=== PATIENT | female | born 1990 | race Caucasian/White ===

== ENCOUNTER 2016-12-12 13:42 | Inpatient (IN) | payer OTHER ==
[~2016-12-12] VITALS: Ht 170.2 cm; Wt 92.1 kg
[2016-12-12] MEDS ORDERED: Lactated Ringer's 1,000 ML IV PRN (22:52)
[2016-12-12] MEDS ORDERED: Oxytocin 30 Units/500 mL LR 30 UNITS in IV Premix 1 EACH IV PRN (22:55)
[2016-12-12] MEDS ORDERED: Hemorrhage Kit, Post Partum XX ONE (22:55)
[2016-12-12] MEDS ORDERED: Ondansetron 2 mg/mL 2 mL Inj IVPUSH PRN (22:55)
[2016-12-12] MEDS ORDERED: Carboprost 250 mCg/mL Inj IM PRN (22:55)
[2016-12-12] MEDS ORDERED: Methylergonovine 0.2 mg/mL Inj IM PRN (22:55)
[2016-12-12] MEDS ORDERED: Oxytocin 10 Unit/mL Inj IM PRN (22:55)
[2016-12-12] MEDS ORDERED: Sodium Chloride LOK Flush 10 mL Syringe IVFLUSH PRN (22:55)
[2016-12-12] MEDS ORDERED: fentaNYL-PF 50 mCg/mL 2 mL Inj IVPUSH PRN (22:55)
[2016-12-12 23:14] LABS: Mean Corpuscular Hemoglobin 28.4 pg (27.0-35.0); Mean Corpuscular Volume 83.3 fL (81-100)
[2016-12-13] MEDS ORDERED: Lactated Ringer's 500 ML IV ONE (00:21)
[2016-12-13] MEDS ORDERED: Ondansetron 2 mg/mL 2 mL Inj IVPUSH PRN (00:25)
[2016-12-13] MEDS ORDERED: EPHEDrine Sulfate 50 mg/mL Inj IVPUSH PRN (00:25)
[2016-12-13] MEDS ORDERED: fentaNYL 2 mCg/mL-Bupiv 0.125% 100 ML EPIDURAL SCH (00:25)
[2016-12-13] MEDS ORDERED: Atropine 1 mg/10 mL (Code) Syringe IVPUSH PRN (00:25)
[2016-12-13] MEDS ORDERED: fentaNYL 2 mCg/mL-Bupivicaine 0.125% 100 mL Premix EPIDURAL ONE (00:28)
[2016-12-13] MEDS: Sodium Chloride LOK Flush 10 mL Syringe IVFLUSH SCH ×3 (00:30→17:00)
[2016-12-13] MEDS: Lactated Ringer's 1,000 ML IV SCH ×3 (00:57→10:19)
--- NOTE | 2016-12-13 01:03 | PCM.HPANE ---
Patient Data Surgeon Admitting Provider:Marti Kuo MD Attending Provider:Colin Zaidi MD Primary Care Physician:Gabrielle Skelton MD Other Provider:Segundo Pittman Anesthesia Reason for Visit Labor (Tolac) LABOR (TOLAC) Ht/WT & BMI Body Mass Index Allergies Coded Allergies: No Known Allergies (Unverified , 12/12/16) History History of ENT Problems?: No Hx of Heart Problems?: No Hx of Respiratory Problem?: No Other History/Comments RA and fibromylalgia; RA does not affect her spine Hx of GI Problems?: No Hx of Problems?: No Female Hx: Positive for:: Currently Other History/Comment Hx at OSH due to abruption. Wishes for TOLAC this . Desires epidural at this time Musculoskeletal History: Positive for:: Fibromyalgia Hx Surgeries?: Yes Hx Alcohol Use: NoHx Substance Use: No Stop/Bang Risk Assessment Category Category 1A: Patient has history of documented sleep apnea, and HAS NOT received any narcotic, sedative or anesthesia administration during this stay. Category 1B: Patient has history of documented sleep apnea, and HAS received any narcotic , sedative or anesthesia administration during this stay Category 2: Patient has SUSPECTED Obstructive Sleep Apnea, and HAS received any narcotic , sedative or anesthesia administration during this stay. Category 3: Patient has SUSPECTED Obstructive Sleep Apnea and HAS NOT received narcotic, sedative or anesthesia administration during this stay. Category 4: Outpatient in Procedural Areas with known sleep apnea or who screen positive for High Risk via the STOP/BANG questionnaire. Exam Exam General Appearance: Alert, Oriented X3 HEENT/AIRWAY: MP 2, Neck Movement (FROM) Lungs: Clear to Auscultation, Clear to Percussion Heart: Exam Unremarkable, Regular Rate/Rhythm Meds/Labs/Diagnostics Labs Test 12/12/16 20:08 White Blood Count 11.3th/mm3 (3.8-10.1) Red Blood Count 4.72mil/mm3 (3.90-5.20) Hemoglobin 13.4g/dL (12.0-15.6) Hematocrit 39.3% (35.0-46.0) Mean Corpuscular Volume 83.3fL (81-100) Mean Corpuscular Hemoglobin 28.4pg (27.0-35.0) Mean Corpuscular Hemoglobin Concent 34.1% (32.0-37.0) Red Cell Distribution Width 13.0% (12.3-15.4) Platelet Count 218bil/L (150-400) Plan Impression Patient chart reviewed, patient interviewed and anesthestic plan with risks, benefits, and alternatives discussed, and informed consent obtained. ASA Physical Status: ASA2 Mod Systemic Disease Anesthetic Plan: Epidural Bene/Risks/Altern/Consents: Yes HP Complete Prior to Induction: Yes Pablo Kim MD Dec 13, 2016 00:23
--- NOTE | 2016-12-13 02:50 | PCM.HPOB ---
Subjective Date of Service: Dec 12, 2016 Referring Provider: Admitting Physician: Marti Kuo MD Primary Care Physician: Gabrielle Skelton MD Attending Physician: Colin Zaidi MD Chief Complaint Contractions History of Present History of Present Illness 26 Y /O at 38 w 2d DMITRI 12/24/16 by First trimester US 1. Hx of previous Cs for placenta abruption at term desires , calculated success rate 77% 2. Depression 3. Anxiety 4. Elevated BP 150/82 at first OB visit. Presented to [facility] with complaint of contractions , after prolonged observation in triage room SROM at ~ 2245 12/12/16 , light meconium stain with cervical change from 2cm to 3 cm. Past Medical History Obstetrical History: Oct 2008 PCD for placenta abruption , M, 7 lb 5 oz. Patient staes that she was told that she is TOLAC cndidate after her section. Patiemnt was counseled at the office by Dr. Reyes. Gynecologic History: LMP 03/31/16 , uncertain. Regular menses. Hx of abn pap smear S/P LEEP. Medical History: Depression and anxiety Elevated BP 150/82 at first OB visit. RA Irritable bowel disease GERD Surgical History: section Cholecystectomy LEEP Hx Tobacco Use: No Hx Alcohol Use: No Hx Substance Use: No Past Family History Family History Lung cancer, Breast disease (Mother) Goat, Bladder cancer, HTN, despression, Colon disease(Father) RA (MGM) Review of Systems ROS 10 points ROS is negative. Medications Home medications Zoloft 200 mg daily gabapentin 600 mg , 1200 mg Ranitidine 150 mg BID PNV Allergy Coded Allergies: No Known Allergies (Unverified , 12/12/16) Exam Vital Signs 112/57 75 100 % on RA T 36.8 Exam 135 moderate variability , positive accelerations and no decelerations , variable decelerations earlier in the triage room , BPP 8/8 Constitutional: Well-developed HEENT: Atraumatic, PERRLA Lungs: Clear to Auscultation Heart: Regular Rate/Rhythm, Normal S1, Normal S2 Abdomen: Gravid, Soft, No tenderness, Other (EFW 8 lb ) Extremities: Pulses Palpable x4 Neurological/Psychiatric: Alert, Oriented X3 Additional Information 6 cm/100 %/0 Labs/Diagnostics Labs Laboratory Tests 72 Hours Test 12/12/16 20:08 White Blood Count 11.3th/mm3 (3.8-10.1) Red Blood Count 4.72mil/mm3 (3.90-5.20) Hemoglobin 13.4g/dL (12.0-15.6) Hematocrit 39.3% (35.0-46.0) Mean Corpuscular Volume 83.3fL (81-100) Mean Corpuscular Hemoglobin 28.4pg (27.0-35.0) Mean Corpuscular Hemoglobin Concent 34.1% (32.0-37.0) Red Cell Distribution Width 13.0% (12.3-15.4) Platelet Count 218bil/L (150-400) Lab/Diagnostic Information A positive, Antibody negative Rubella immune RPR NR HBsAg NR HIV NR Elevated 1 hr GTT, 3 hrs WNL. GC/CT negative 07/06/16 Hgb 10.6 (05/18/16) TSH 1.4 Hep C negative OB Intrapartum Assessment/Plan Assessment 26 Y /O at 38 w 2d DMITRI 12/24/16 by First trimester US .SROM light meconium stained fluid. ~ 22:45 (12/12/16) TOLAC : Counseled re R/B/A including and limited to risk of uterine rupture, , maternal , hysterectomy, increased risk of section complications if failed TOLACcompared to elective section. All questions were answered. Patient desires TOLAC Informed const was signed. GBS negative Pain Management: admit with orders and labs. Marti Kuo MD Dec 13, 2016 02:50
[2016-12-13] MEDS ORDERED: Lactated Ringer's 1,000 ML IV SCH (06:44)
[2016-12-13] MEDS ORDERED: Oxytocin 30 Units/500 mL LR 30 UNITS in IV Premix 1 EACH IV PRN ×2 (06:45→10:20)
--- NOTE | 2016-12-13 07:01 | PCM.PNOBIP ---
Subjective Date of Service Dec 13, 2016 Subjective comfortable with epidural with some urge to push and pelvic pressure with contractions Labs Laboratory Tests 12/12/16 20:08: White Blood Count 11.3, Red Blood Count 4.72, Hemoglobin 13.4, Hematocrit 39.3, Mean Corpuscular Volume 83.3, Mean Corpuscular Hemoglobin 28.4, Mean Corpuscular Hemoglobin Concent 34.1, Red Cell Distribution Width 13.0, Platelet Count 218 Exam Vital Signs Vital Signs 128/63 87 T 36.8 Contraction frequency in minutes: every 5 min FHT: 130 moderate variability , variable decelerations when pushing with contractions. Vital Signs: VS reviewed, stable Heart Tracings Heart Tones Baseline bpm Tocometry/IUPC Contraction frequency in minutes: MVUs: Exam General: Alert, Oriented X3 OB Intrapartum Assessment/Plan Assessment 26 Y /O at 38 w 3d DMITRI 12/24/16 by First trimester US .SROM light meconium stained fluid. ~ 22:45 (12/12/16) TOLAC : Second stage of labor started 5:00 am , contractions every 5 min. Start Pitocin for augmentation Marti Kuo MD Dec 13, 2016 07:01
--- NOTE | 2016-12-13 09:05 | DRSVH ---
PROCEDURE: US OB BIOPHYSICAL PROFILE AND UMBILICAL DOPPLER INDICATIONS: variables OUTSIDE/PRIOR DATING DATA: Last menstrual period (LMP): March 31, 2016. LMP-based estimated date of delivery (DMITRI): January 05, 2017. First dating scan (date and location): June 05, 2016 at [facility]. Estimated date of delivery (DMITRI) from first dating scan: December 24, 2016. TECHNIQUE: Real-time scanning was performed of the fetus for biophysical profile, with image documentation. Col or and pulse Doppler interrogation was also performed of the umbilical artery near its insertion into the placenta. COMPARISON: [facility], US, US OB FOLLOW UP GROWTH, 11/07/2016, 8:31. FINDINGS: General: A single living intrauterine gestation is present. Presentation: Vertex. Placenta: Placental position is anterior, without previa. OB-TRAP SETTER Ultrasound Procedure Report Summary Fetus Summary Heart Rate: 143 bpm Gestational Age from initial dating scan: 38 weeks, 2 days Findings(Amniotic Sac) Amniotic Fluid Index (CASTRO): 11.70 cm Pelvis and Uterus Cervix Length (Mean): Not well seen. Biophysical Profile Amniotic Fluid Volume: 2 Breathin Gross Body Movement: 2 Tone: 2 Biophysical Profile Sum Score: 8 Findings(Pelvic Vascular Structure) Umbilical Artery S/D Ratio: Normal ratios ranging between 2.0 and 2.2 IMPRESSION: Normal biophysical profile and cord Doppler with preserved diastolic flow. Dictated by: Luis Pacheco [facility] Interpreted: Jaswant Davis MD on 12/13/2016 at 8:59 Transcribed by: EV on 12/13/2016 at 9:04 Approved by: Jaswant Davis M.D. on 12/13/2016 at 17:45
[2016-12-13] MEDS ORDERED: Witch Hazel-Glycerin Pads TOPICAL PRN (10:20)
[2016-12-13] MEDS ORDERED: Hemorrhage Kit, Post Partum XX ONE (10:20)
[2016-12-13] MEDS ORDERED: Methylergonovine 0.2 mg/mL Inj IM PRN (10:20)
[2016-12-13] MEDS ORDERED: Carboprost 250 mCg/mL Inj IM PRN (10:20)
[2016-12-13] MEDS ORDERED: Oxytocin 10 Unit/mL Inj IM PRN (10:20)
[2016-12-13] MEDS ORDERED: Benzocaine (Dermoplast) 20% 60 Gm Spray TOPICAL PRN (10:20)
--- NOTE | 2016-12-13 10:27 | PCM.OBVAG ---
Vaginal Delivery Date of Service Dec 13, 2016 Pre Operative Diagnosis Pre Operative Diagnosis 1. 38 weeks 2 days gestation 2. Previous delivery who desired TOLAC Post Operative Diagnosis Post Operative Diagnosis 1. 38 weeks 2 days gestation 2. Previous delivery who desired TOLAC Procedure Procedure: Obstetical Procedure: Normal Spontaneous Vaginal Delivery Manager Drug/Hand Compositor Provider and Hand Compositor: Danisha Lindsey MD Indication for Procedure Indication for Procedure 26 y/o at 38 weeks 2 days gestation with a history of a previous delivery who desired TOLAC Induction: Active labor, Pitocin augmentation, SROM, Progressed normally through labor Findings Obstetrical Findings: (Male), Cord (3 Vessel), Weight (3051grams) , Presentation (NADEEN), 1 minute (8), 5 minutes (9), Placenta (Intact/ Normal) Analgesia/Medications Obstetrical Anesthesia: Epidural Procedure Details Procedure Details 38 week 2 days gestation with history of previous delivery who desired a trial of labor. She presented in active labor and had SROM on admission. She progressed to complete cervical dilation at 0550hrs. She required pitocin augmentation due to infrequent contractions. Male was delivered at 0903hrs without complication. There was light meconium stained amniotic fluid. Pediatricians were present at delivery, but spontaneously cried after delivery and was placed on maternal chest for skin to skin bonding. The placenta was delivered intact at 0918hrs. Uterus was firm and no significant perineal or vaginal lacerations needing repair were appreciated. Sponge and Needle counts were correct times two at the end of the procedure. Blood Loss & Administration Estimated Blood Loss: 200 Blood Admin during procedure: No Post Procedure Plan Post Procedure Plan Routine pp care Post delivery Condition: Mom stable Danisha Lindsey MD Dec 13, 2016 10:27
[2016-12-13] MEDS ORDERED: Witch Hazel-Glycerin Pads TOPICAL ONE (12:48)
[2016-12-13] MEDS ORDERED: Benzocaine (Dermoplast) 20% 60 Gm Spray TOPICAL ONE (12:48)
[2016-12-13] MEDS ORDERED: LANOlin HPA 7 Gm Ointment TOPICAL ONE (12:48)
[2016-12-13] MEDS: HYDROcodone-APAP 5-325 mg Tablet PO PRN ×2 (15:52→19:51)
[2016-12-14] MEDS: HYDROcodone-APAP 5-325 mg Tablet PO PRN (00:14)
[2016-12-14 08:18] LABS: Mean Corpuscular Hemoglobin 28.1 pg (27.0-35.0); Mean Corpuscular Volume 84.3 fL (81-100)
--- NOTE | 2016-12-14 08:22 | PCM.DIMED ---
Discharge Instructions Date of Service Dec 14, 2016 Dates of Hospitalization Dec 12, 2016 at 11:06 pm Discharge Diagnosis Discharge Diagnosis 1. 38 weeks 2 days gestation 2. Previous delivery who desired TOLAC 3. Successful Medication Instructions Vicodin 5/325 mg, take 1 tab q4-6h PO PRN for pain, #40 Colace 100 mg BID PO PRN for constipation #80 Ferrous sulfate 325 mg PO daily, #90 Vitamin C 500 mg PO daily, #90. Take with iron Ibuprofen 800mg, take 1 tab q8h PO PRN for pain #60 Diet No restrictions Activity Other (Pelvic rest for 6 wks. No heaving lifting, greater than 15lbs for 4wks. Be up and about as pain and energy allows.) Patient Instructions Continue your vitamin. Please take the iron and vitamin c together for your anemia. Do not take more pain medication (Vicodin) than is necessary -- less is better. Vicodint pills have Tylenol (acetaminophen) in them at 325mg per pill. Do not take Tylenol in addition to your pain medication but should take one or the other. Both iron and Vicodin can give you constipation so you have also been given a prescription for docusate to keep you regular. Be sure to follow up in 6 weeks at [facility]. Pelvic rest for 6 weeks (nothing per vagina including intercourse, tampons) If you have a fever greater than 100.4, please call [facility]. There is always someone incident response lead to talk to. If you have an increase in bleeding, call [facility]. If you have a lot of bleeding suddenly, especially if you have symptoms of dizziness & weakness with it, get emergency help. When you see [facility] in two weeks, you will be informed of the results of all the labs. If you start experiencing extreme depression, especially if you feel that you are a danger to yourself or your family, seek emergency help. You have been through a lot -- BE SURE TO TAKE CARE OF YOURSELF. Follow-up plan Follow-up at [facility] in 6 weeks Germain Jama DO Dec 14, 2016 8:22 am
[2016-12-14] MEDS ORDERED: ASCO-294 PO ×2 (08:25→13:16)
[2016-12-14] MEDS ORDERED: FERR-74 PO ×2 (08:25→13:16)
[2016-12-14] MEDS ORDERED: IBUP800T28 PO ×2 (08:25→13:16)
[2016-12-14] MEDS ORDERED: HYDR-4003 PO ×2 (08:25→13:16)
[2016-12-14] MEDS ORDERED: DOCU-41 PO ×2 (08:25→13:16)
[2016-12-14] MEDS: Sodium Chloride LOK Flush 10 mL Syringe IVFLUSH SCH (08:30)
--- NOTE | 2016-12-14 08:51 | PCM.DC.OB ---
Obstetrical Discharge Summary Date of Service Dec 14, 2016 Date of hospital admission Dec 12, 2016 at 23:06 Date of Discharge: Dec 14, 2016 Providers Admitting Physician: Marti Kuo MD Primary Care Physician: Gabrielle Skelton MD Attending Physician: Colin Zaidi MD Diagnosis at Time of Discharge TOLAC successful Problems: Brief History and Physical: 26 Y /O now at 38 w 2d DMITRI 12/24/16 by First trimester US 1. Hx of previous Cs for placenta abruption at term desires , calculated success rate 77% 2. Depression 3. Anxiety 4. Elevated BP 150/82 at first OB visit. Presented to [facility] with complaint of contractions , after prolonged observation in triage room SROM at ~ 2245 12/12/16 , light meconium stain with cervical change from 2cm to 3 cm. PE on Day of Discharge General: laying in bed with new born. Cardiovascular: RRR, no CMR. PP 2/4. Pulm: CTA BL, no WRR ABD: Soft, non-tender, Funding 3 finger breadths below umbilicus. Extremities: no edema. Hospital Course: Per delivery note: 38 week 2 days gestation with history of previous delivery who desired a trial of labor. She presented in active labor and had SROM on admission. She progressed to complete cervical dilation at 0550hrs. She required pitocin augmentation due to infrequent contractions. Male infant was delivered at 0903hrs without complication. There was light meconium stained amniotic fluid. Pediatricians were present at delivery, but spontaneously cried after delivery and was placed on maternal chest for skin to skin bonding. The placenta was delivered intact at 0918hrs. Uterus was firm and no significant perineal or vaginal lacerations needing repair were appreciated. Patient states she feels well and would like to go home the morning of Post day 1. Ascorbate Calcium (Vitamin C) 500 Mg Tablet 500 MG PO DAILY Prescribed by: GERMAIN HULL DO Docusate Sodium (Colace) 100 Mg Capsule 100 MG PO DAILY PRN PRN For Constipation Prescribed by: GERMAIN HULL DO Ferrous Sulfate (Feosol) 325 Mg Tablet 325 MG PO DAILY Prescribed by: GERMAIN HULL DO Hydrocodone-Acetaminophen 5-325 mg (Hydrocodone-Acetaminophen 5-325 mg) 1 Each Tablet 1-2 TABLET PO Q4H PRN PRN For Pain Prescribed by: GERMAIN HULL DO Ibuprofen (Ibuprofen) 800 Mg Tablet 800 MG PO Q6H PRN PRN For Pain Prescribed by: GERMAIN HULL DO Discharge Medications: as above Disposition Home Follow-up plan 6 week follow up at [facility] Discharge Diet: No restrictions Discharge Activity-General: Pelvic Rest for 6 weeks, Pelvic Rest, Try not to overdue, Be up and about, Balance rest and activity, Activity as pain allows, Activity as energy allows, No lifting >15 pounds for 2 weeks Patient instructions Continue your vitamin. Please take the iron and vitamin c together for your anemia. Do not take more pain medication (Vicodin) than is necessary -- less is better. Vicodin pills have Tylenol (acetaminophen) in them at 325mg per pill. Do not take Tylenol in addition to your pain medication but should take one or the other. Both iron and Vicodint can give you constipation so you have also been given a prescription for docusate to keep you regular. Be sure to follow up in 6 weeks at [facility]. Pelvic rest for 6 weeks (nothing per vagina including intercourse, tampons) If you have a fever greater than 100.4, please call [facility]. There is always someone prevention coordinator to talk to. If you have an increase in bleeding, call [facility]. If you have a lot of bleeding suddenly, especially if you have symptoms of dizziness & weakness with it, get emergency help. When you see [facility] in two weeks, you will be informed of the results of all the labs. If you start experiencing extreme depression, especially if you feel that you are a danger to yourself or your family, seek emergency help. You have been through a lot -- BE SURE TO TAKE CARE OF YOURSELF. Germain Jama DO Dec 14, 2016 08:51
[2016-12-14] MEDS: Lactated Ringer's 1,000 ML IV SCH (09:18)
[2016-12-14 11:27] VITALS: BP 113/68; PULSE 70; RESP 16
[2017-01-10] MEDS ORDERED: AMOX-363 PO (08:51)
[2017-01-10] MEDS ORDERED: GABA600T2 PO ×2 (08:51)
[2017-01-10] MEDS ORDERED: [UNRECOGNIZED DRUG - CODE] IJ (08:51)
[2017-01-10] MEDS ORDERED: CYCL5TAB PO (08:51)
[2017-01-10] MEDS ORDERED: HYDR200T5 PO (08:51)
[2017-01-10] MEDS ORDERED: VENL75CA PO (08:51)
[2017-01-10] MEDS ORDERED: HYDR50CA PO (08:51)
[2017-01-10] MEDS ORDERED: PREN-148 PO (08:51)
[2017-01-10] MEDS ORDERED: NORE0.3520 PO (08:51)
[2017-01-10] MEDS ORDERED: RANI150C4 PO (08:51)
== END 2016-12-14 14:11 | disposition home or self-care (01) | DRG 560 ==
LOC: FBCO 13:42 → FBC 23:06
PROVIDERS: ADMIT Obstetrics & Gynecology; ATTEND Obstetrics & Gynecology
PROC: 10E0XZZ Delivery of Products of Conception, External Approach (ICD-10-PCS; principal; 2016-12-13)
PROC: 10H07YZ Insertion of Other Device into Products of Conception, Via Natural or Artificial Opening (ICD-10-PCS; 2016-12-13)
DX: O34.211 Maternal care for low transverse scar from previous cesarean delivery (principal); O77.0 Labor and delivery complicated by meconium in amniotic fluid; O76 Abnormality in fetal heart rate and rhythm complicating labor and delivery; Z37.0 Single live birth; Z3A.38 38 weeks gestation of pregnancy